=== PATIENT | male | born 1960 ===

== ENCOUNTER 2016-12-12 23:48 | Emergency (ER) | payer SELFPAY ==
[2016-12-13 00:25] VITALS: BP 112/94; PULSE 120; RESP 22; TEMP 98.6; O2SAT 98
--- NOTE | 2016-12-13 01:13 | ED PDOC ---
HPI: Back Time Seen by Provider: 12/13/16 00:34 Chief Complaint (Nursing): Back Pain Chief Complaint (Provider): Back Pain History Per: Patient History/Exam Limitations: no limitations Onset/Duration Of Symptoms: Days (One ) Previous Symptoms: Back Pain, Chronic Pain Additional Complaint(s): 56 y/o male presenting to the ED with chest pain that he states started today but is chronic. He states he took pain medication but is requesting pain medications for the back pain again in the ED. Past Medical History Reviewed: Historical Data, Nursing Documentation, Vital Signs Vital Signs: Last Vital Signs Temp 98.6 F 12/13/16 00:23 Pulse 120 H 12/13/16 00:23 Resp 22 12/13/16 00:23 BP 112/94 H 12/13/16 00:23 Pulse Ox 98 12/13/16 00:23 - Medical History PMH: HTN - Family History Family History: States: Unknown Family Hx - Allergies Allergies/Adverse Reactions: Allergies Allergy/AdvReac Type Severity Reaction Status Date / Time No Known Allergies Allergy Verified 12/13/16 00:25 Review of Systems ROS Statement: Except As Marked, All Systems Reviewed And Found Negative Musculoskeletal: Positive for: Back Pain (Chronic) Physical Exam - Reviewed Nursing Documentation Reviewed: Yes Vital Signs Reviewed: Yes - Physical Exam Appears: Positive for: Non-toxic, No Acute Distress Head Exam: Positive for: ATRAUMATIC, NORMAL INSPECTION, NORMOCEPHALIC Skin: Positive for: Normal Color, Warm, Dry Cardiovascular/Chest: Positive for: Regular Rate, Rhythm. Negative for: Murmur Respiratory: Positive for: Normal Breath Sounds. Negative for: Respiratory Distress Extremity: Positive for: Normal ROM Neurologic/Psych: Positive for: Alert, Oriented, Gait ((+)Steady). Negative for : Motor/Sensory Deficits - ECG O2 Sat by Pulse Oximetry: 98 (RA) Pulse Ox Interpretation: Normal (RA) Medical Decision Making Medical Decision Making: Time: 33 Initial impression: Patient left before treatment completed. Scribe Attestation: Documented by Janett Cooney, acting as a scribe for Marianela Shore MD. Scribe Attestation: All medical record entries made by the Scribe were at my direction and personally dictated by me. I have reviewed the chart and agree that the record accurately reflects my personal performance of the history, physical exam, medical decision making, and the department course for this patient. I have also personally directed, reviewed, and agree with the discharge instructions and disposition. Disposition - Clinical Impression Clinical Impression: Back pain - Patient ED Disposition Is Patient to be Admitted: No - Disposition Disposition: Left W/O Treatment Disposition Time: 01:05 Condition: STABLE
== END 2016-12-13 00:55 | disposition left against medical advice (07) ==
LOC: H.ER 23:48
DX: M54.9 Dorsalgia, unspecified (principal); I10 Essential (primary) hypertension